=== PATIENT | male | born 1975 | race Caucasian/White ===

== ENCOUNTER 2020-02-02 11:42 | Emergency (ER) | payer OTHER ==
[2020-02-02 11:48] VITALS: BP 157/93; PULSE 85; RESP 16; TEMP 98.8
--- NOTE | 2020-02-02 12:22 | XR ---
Left foot HISTORY: Pain in left heel, gout 3 views the left foot Degenerative change present at the first metatarsophalangeal joint, there is associated soft tissue s welling. Bone mineralization, joint spaces and alignment are essentially maintained. 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 IMPRESSION: No acute abnormalities evident.
--- NOTE | 2020-02-02 12:27 | ED ---
Extremity Problem HPI - General Chief complaint: Extremity Problem,Nontraumatic Stated complaint: gout Time Seen by Provider: 02/02/20 11:48 Source: patient Mode of arrival: ambulatory Limitations: no limitations - History of Present Illness Initial comments: 44-year-old male with history of gout presents emergency department for chief complaint of left heel pain. Patient states that his left heel when he puts pressure on it has been hurting he is not sure if gout can get into the heel he denies a great toe pain denies any redness. Patient denies any known injury or trauma. Patient has a fever chills general malaise. Patient denies previous injuries. Patient is no additional complaints upon arrival he appears well signs of acute distress. Contrary to triage, patient DENIES great toe pain. He states he USUALLY gets gout in the great toe but the pain is in the left heal only. - Related Data Allergies Allergy/AdvReac Type Severity Reaction Status Date / Time No Known Allergies Allergy Verified 02/02/20 11:48 Review of Systems ROS Statement: Those systems with pertinent positive or pertinent negative responses have been documented in the HPI. ROS Other: All systems not noted in ROS Statement are negative. Past Medical History Past Medical History: No Reported History History of Any Multi-Drug Resistant Organisms: None Reported Past Surgical History: No Surgical Hx Reported Past Psychological History: No Psychological Hx Reported Smoking Status: Never smoker Past Alcohol Use History: None Reported Past Drug Use History: None Reported General Exam - General Exam Comments Initial Comments: General: The patient is awake and alert, in no distress Eye: Pupils are equal, round and reactive to light, extra-ocular movements are intact. No nystagmus. There is normal conjunctiva bilaterally. No signs of icterus. Ears, nose, mouth and throat: There are moist mucous membranes and no oral lesions. Musculoskeletal: Normal inspection of heels b/l pain to palpation of the bottom of heel and along medial aspect of arch. Normal ROM, no tenderness. Strength 5/5. Sensation intact. dP pulses equal bilaterally 2+. Neurological: A&O x 3. CN II-XII intact grossly, There are no obvious motor or sensory deficits. Coordination appears grossly intact. Speech is normal. Skin: Skin is warm and dry and no rashes or lesions are noted. Psychiatric: Cooperative, appropriate mood & affect, normal judgment. Limitations: no limitations Course Vital Signs 02/02/20 11:46 Temperature 98.8 F Pulse Rate 85 Respiratory 16 Rate Blood Pressure 157/93 O2 Sat by Pulse 99 Oximetry Medical Decision Making - Medical Decision Making XR (-) Patient wearing vans (no arch shoe). Patient pain area appears at this time most consistent with a plant fasciitis. Patient has no additional complaints and will be discharged with PCP f/u. I discussed symptoms control techniques, importance of rest-supportive soles and icing area. Discussed appropriate NSAID use and importance of PCP f/u. Patient verbalized understanding and was discharged appearing well. - Lab Data Lab Results 02/02/20 Range/Units 13:00 Coronavirus (PCR) Not Detected (Not Detected) Disposition Clinical Impression: Heel pain, Pain of left heel Disposition: HOME SELF-CARE Condition: Good Instructions (If sedation given, give patient instructions): Plantar Fasciitis (ED) Additional Instructions: Please use medication as discussed. Please follow-up with family doctor in the next 2 days. . Please return to emergency room if the symptoms increase or worsen or for any other concerns. Is patient prescribed a controlled substance at d/c from ED?: No Referrals: None,Stated [Primary Care Provider] - 1-2 days Time of Disposition: 12:27
== END 2020-02-02 12:40 | disposition home or self-care (01) ==
LOC: EC 11:42
DX: M79.672 Pain in left foot (principal); Z20.828 Contact with and (suspected) exposure to other viral communicable diseases
CPT/HCPCS: 73630; 99283; U0003

== ENCOUNTER → 2020-10-05 | Outpatient (CLI) | payer OTHER ==
[2020-10-05 10:49] LABS: Basophils # (A) 0.05 X 10*3/uL (0.00-0.10); Basophils % (A) 0.7 %; Eosinophils # (A) 0.23 X 10*3/uL (0.04-0.35); Eosinophils % (A) 3.3 %; HCT 46.1 % (39.6-50.0); HGB 15.9 g/dL (13.0-17.0); Lymphocytes # (A) 2.52 X 10*3/uL (0.90-5.00); Lymphocytes % (A) 36.4 %; MCH 31.7 pg (27.0-32.0); MCHC 34.5 g/dL (32.0-37.0); Mean Platelet Volume 9.6 fL (9.5-12.2); Monocytes # (A) 0.77 X 10*3/uL (0.20-1.00); Monocytes % (A) 11.1 %; Neutrophils # (A) 3.32 X 10*3/uL (1.80-7.70); Neutrophils % (A) 48.1 %; Platelet Count 262 X 10*3/uL (140-440); RBC 5.01 X 10*6/uL (4.40-5.60); RDW 12.2 % (11.5-14.5); WBC 6.92 X 10*3/uL (4.50-10.00)
[2020-10-05 11:27] LABS: African American GFR (CKD) 104.9 (60.0-200.0); Albumin 4.7 g/dL (3.80-4.90); Albumin/Globulin Ratio 2.24 (1.60-3.17); Anion Gap 8.3 mmol/L (4.00-12.00); Carbon Dioxide 26.7 mmol/L (21.6-31.8); Chol/HDL Ratio 3.53; Globulin 2.1 g/dL (1.6-3.3); Non-African American GFR(CKD) 90.5 (60.0-200.0); PSA Annual Screen 0.5 ng/mL (0.0-4.0); Potassium 4.3 mmol/L (3.5-5.5); Total Bilirubin 0.9 mg/dL (0.2-1.2); Total Protein 6.8 g/dL (6.2-8.2)
[2020-10-05 16:38] LABS: Hemoglobin A1C 5.2 % (4.0-6.0)
== END | disposition home or self-care (01) ==
LOC: LABWHC1 07:11
PROVIDERS: ATTEND Family Medicine
DX: Z00.00 Encounter for general adult medical examination without abnormal findings (principal); Z12.5 Encounter for screening for malignant neoplasm of prostate
CPT/HCPCS: 80061; 80053; 84443; 85025; 83036; 36415; G0103